=== PATIENT | female | born 1960 | race Caucasian/White ===

== ENCOUNTER → 2016-07-10 | Outpatient (CLI) | payer MEDICARE, OTHER | END | disposition home or self-care (01) | LOC: PCVCCLINIC 15:38 | PROVIDERS: ATTEND Internal Medicine Cardiovascular Disease | DX: I10 Essential (primary) hypertension (principal); I27.82 Chronic pulmonary embolism; R00.0 Tachycardia, unspecified; K21.9 Gastro-esophageal reflux disease without esophagitis; I45.10 Unspecified right bundle-branch block; Z79.899 Other long term (current) drug therapy; Z79.01 Long term (current) use of anticoagulants; E78.5 Hyperlipidemia, unspecified | CPT/HCPCS: 80061; 93005; G0463 ==

== ENCOUNTER → 2016-08-21 | Outpatient (CLI) | payer MEDICARE, OTHER | END | disposition home or self-care (01) | LOC: PCVCCLINIC 15:27 | PROVIDERS: ATTEND Internal Medicine Cardiovascular Disease | DX: I10 Essential (primary) hypertension (principal); I26.99 Other pulmonary embolism without acute cor pulmonale; I27.2 Other secondary pulmonary hypertension; K21.9 Gastro-esophageal reflux disease without esophagitis; M19.90 Unspecified osteoarthritis, unspecified site; F41.9 Anxiety disorder, unspecified; R00.1 Bradycardia, unspecified; F32.9 Major depressive disorder, single episode, unspecified; Z95.828 Presence of other vascular implants and grafts; Z79.01 Long term (current) use of anticoagulants; Z79.899 Other long term (current) drug therapy | CPT/HCPCS: G0463 ==

== ENCOUNTER → 2017-10-06 | Outpatient (CLI) | payer MEDICARE, OTHER ==
--- NOTE | 2017-10-06 17:16 | PCVCIMAG ---
APPROVED REPORT Study performed: 10/06/2017 13:52:32 EXAM: Comprehensive 2D, Doppler, and color-flow Echocardiogram Patient Location: Echo lab Status: routine BSA: 2.02 HR: 64 bpmBP: 110/80 mmHg Rhythm: NSR Other Information Study Quality: Good Indications Pulmonary hypertension. Asthma. MANE, Pulmonary Emboli. Pre op clearance for surgery. 2D Dimensions LVEF(%): 58.40 (>50%) IVSd: 8.88 (7-11mm)LVOT Diam: 20.59 (18-24mm) LVDd: 48.42 mm LVPWs: 19.37 mm PWd: 7.45 (7-11mm)Ascending Ao: 35.06 (22-36mm) LVDs: 33.46 (25-40mm) Left Atrium: 39.55 (27-40mm) Aortic Root: 30.27 mm LV Single Plane 4CH: 67.71 % LV Single Plane 2CH: 69.53 %Yu's LVEF: 68.62 % Biplane EF: 68.6 % Volumes Left Atrial Volume (Systole) Single Plane 4CH: 50.67 mLSingle Plane 2CH: 52.89 mL LA ESV Index: 26.00 mL/m2 Aortic Valve AoV Peak Willy.: 1.71 m/s AO Peak Gr.: 11.73 mmHgLVOT Max P.91 mmHg LVOT Max V: 1.31 m/s JOHN Vmax: 2.55 cm2 Mitral Valve E/A Ratio: 1.4 MV Decel. Time: 208.38 ms MV E Max Willy.: 1.00 m/s MV A Willy.: 0.73 m/s TDI E/Lateral E': 6.67E/Medial E': 7.69 Medial E' Willy.: 0.13 m/s Lateral E' Willy.: 0.15 m/s Pulmonary Valve PV Peak Gr.: 3.50 mmHg Pulmonary Vein P Vein S: 0.77 m/sP Vein A: 0.28 m/s P Vein D: 0.47 m/sP Vein A Dur.: 103.8 msec P Vein S/D Ratio: 1.64 Tricuspid Valve TR Peak Willy.: 3.22 m/s TR Peak Gr.: 41.42 mmHg Left Ventricle The left ventricle is normal size. There is normal LV segmental wall motion. There is normal left ventricular wall thickness. Left ventricular systolic function is normal. The left ventricular ejection fraction is within the normal range. LVEF is 60-65%. The left ventricular diastolic function is normal. Right Ventricle The right ventricle is normal size. The right ventricular systolic function is normal. Atria The left atrium size is normal. The right atrium size is normal. Aortic Valve The aortic valve is normal in structure. No aortic regurgitation is present. There is no aortic valvular stenosis. Mitral Valve The mitral valve is normal in structure. Mild mitral regurgitation. No evidence of mitral valve stenosis. Tricuspid Valve The tricuspid valve is normal in structure. Mild tricuspid regurgitation. Pulmonary artery pressure is 52mmhg. Pulmonic Valve The pulmonary valve is normal in structure. There is no pulmonic valvular regurgitation. Great Vessels The aortic root is normal in size. IVC is normal in size and collapses with >50% inspiration Pericardium There is no pericardial effusion. <Conclusion> The left ventricle is normal size. LVEF is 60-65%. The left ventricular diastolic function is normal. The right ventricle is normal size. The left atrium size is normal. The aortic valve is normal in structure. Mild mitral regurgitation. Mild tricuspid regurgitation. Pulmonary artery pressure is 52mmhg. There is no pulmonic valvular regurgitation. The aortic root is normal in size. There is no pericardial effusion.
== END | disposition home or self-care (01) ==
LOC: PCVCIMAG 13:47
PROVIDERS: ATTEND Internal Medicine Cardiovascular Disease
DX: Z01.818 Encounter for other preprocedural examination (principal); I27.20 Pulmonary hypertension, unspecified; J45.909 Unspecified asthma, uncomplicated; G47.33 Obstructive sleep apnea (adult) (pediatric); I26.99 Other pulmonary embolism without acute cor pulmonale; I08.1 Rheumatic disorders of both mitral and tricuspid valves
CPT/HCPCS: 85610; 93306

== ENCOUNTER → 2017-10-28 | Outpatient (CLI) | payer MEDICARE, OTHER | END | disposition home or self-care (01) | LOC: PCVCCLINIC 15:18 | PROVIDERS: ATTEND Internal Medicine Cardiovascular Disease | DX: I27.20 Pulmonary hypertension, unspecified (principal); R06.02 Shortness of breath; I26.99 Other pulmonary embolism without acute cor pulmonale; I10 Essential (primary) hypertension; J45.909 Unspecified asthma, uncomplicated; Z79.01 Long term (current) use of anticoagulants | CPT/HCPCS: 80061; 93005; G0463 ==

== ENCOUNTER → 2018-04-21 | Outpatient (CLI) | payer MEDICARE, OTHER ==
--- NOTE | 2018-04-21 17:26 | PCVCIMAG ---
APPROVED REPORT Study performed: 04/21/2018 16:44:56 EXAM: Comprehensive 2D, Doppler, and color-flow Echocardiogram Patient Location: Echo lab Room #: 2Status: routine BSA: 2.01 HR: 107 bpm Rhythm: Atrial Fibrillation Other Information Study Quality: Good Indications Atrial Fibrillation Dyspnea Palpitations Tachycardia Hx multiple pulmonary emboli with an IVC filter 2D Dimensions IVSd: 8.34 (7-11mm)LVOT Diam: 18.51 (18-24mm) LVDd: 47.56 mm PWd: 8.76 (7-11mm)Ascending Ao: 35.58 (22-36mm) LVDs: 31.65 (25-40mm) Left Atrium: 40.83 (27-40mm) Aortic Root: 26.31 mm LV Single Plane 4CH: 54.77 % LV Single Plane 2CH: 50.56 % Biplane EF: 52.3 % Volumes Left Atrial Volume (Systole) Single Plane 4CH: 71.42 mLSingle Plane 2CH: 51.82 mL Tricuspid Valve TR Peak Willy.: 3.07 m/s TR Peak Gr.: 37.70 mmHg TV Vmax: 1.00 m/sPA Pressure: 45.00 mmHg Left Ventricle The left ventricle is normal size. There is normal LV segmental wall motion. There is normal left ventricular wall thickness. Left ventricular systolic function is normal. The left ventricular ejection fraction is within the normal range. LVEF is 50-55%. This study is not technically sufficient to allow evaluation of the LV diastolic function due to atrial fibrillation. Right Ventricle The right ventricle is normal size. The right ventricular systolic function is normal. Atria Left atrium is mildly dilated. Right atrium is mildly dilated. Aortic Valve The aortic valve is normal in structure. No aortic regurgitation is present. There is no aortic valvular stenosis. Mitral Valve The mitral valve is normal in structure. There is no mitral valve regurgitation noted. No evidence of mitral valve stenosis. Tricuspid Valve The tricuspid valve is normal in structure. Moderate tricuspid regurgitation with a PA pressure of 45 mmHg. Moderate pulmonary hypertension. Pulmonic Valve The pulmonary valve is normal in structure. There is no pulmonic valvular regurgitation. Great Vessels The aortic root is normal in size. IVC is normal in size and collapses >50% with inspiration. Pericardium There is no pericardial effusion. There is no pleural effusion. <Conclusion> The left ventricle is normal size. LVEF is 50-55%. This study is not technically sufficient to allow evaluation of the LV diastolic function due to atrial fibrillation. The right ventricle is normal size. Left atrium is mildly dilated. Right atrium is mildly dilated. The aortic valve is normal in structure. There is no mitral valve regurgitation noted. Moderate tricuspid regurgitation with a PA pressure of 45 mmHg. Moderate pulmonary hypertension. The aortic root is normal in size. There is no pericardial effusion.
== END | disposition home or self-care (01) ==
LOC: PCVCIMAG 16:29
PROVIDERS: ATTEND Internal Medicine Cardiovascular Disease
DX: I07.1 Rheumatic tricuspid insufficiency (principal); I48.91 Unspecified atrial fibrillation; R06.09 Other forms of dyspnea; R00.2 Palpitations; R00.0 Tachycardia, unspecified; R06.02 Shortness of breath; I27.20 Pulmonary hypertension, unspecified; I26.99 Other pulmonary embolism without acute cor pulmonale; I10 Essential (primary) hypertension; K21.9 Gastro-esophageal reflux disease without esophagitis; G47.33 Obstructive sleep apnea (adult) (pediatric); M19.90 Unspecified osteoarthritis, unspecified site; Z79.01 Long term (current) use of anticoagulants; Z79.899 Other long term (current) drug therapy
CPT/HCPCS: 93005; 93308; G0463

== ENCOUNTER → 2018-04-22 | Outpatient (CLI) | payer MEDICARE, OTHER | END | disposition home or self-care (01) | LOC: PCVCCLINIC 13:00 | PROVIDERS: ATTEND Internal Medicine Cardiovascular Disease | DX: I48.1 Persistent atrial fibrillation (principal); I26.99 Other pulmonary embolism without acute cor pulmonale; I27.20 Pulmonary hypertension, unspecified; K21.9 Gastro-esophageal reflux disease without esophagitis; I10 Essential (primary) hypertension; M19.90 Unspecified osteoarthritis, unspecified site; Z79.01 Long term (current) use of anticoagulants | CPT/HCPCS: 93005; G0463 ==

== ENCOUNTER → 2018-10-27 | Outpatient (CLI) | payer MEDICARE, OTHER ==
--- NOTE | 2018-10-27 14:49 | PCVCIMAG ---
APPROVED REPORT Study performed: 10/27/2018 13:06:52 EXAM: Comprehensive 2D, Doppler, and color-flow Echocardiogram Patient Location: Echo lab Room #: 2Status: routine BSA: 1.91 HR: 75 bpmBP: 126/78 mmHg Rhythm: NSR Other Information Study Quality: Adequate Risk Factors: Cardiac Risk Factors: HTN Indications Pulmonary Hypertension Atrial Fibrillation Hypertension/HDD OCA, Hx Pulmonary emboli 2D Dimensions IVSd: 5.98 (7-11mm)LVOT Diam: 21.82 (18-24mm) LVDd: 44.36 mm PWd: 9.26 (7-11mm)Ascending Ao: 32.08 (22-36mm) LVDs: 31.07 (25-40mm) Left Atrium: 31.58 (27-40mm) Aortic Root: 33.28 mm LV Single Plane 4CH: 69.71 % LV Single Plane 2CH: 65.28 % Biplane EF: 68.2 % Volumes Left Atrial Volume (Systole) Single Plane 4CH: 68.17 mLSingle Plane 2CH: 89.25 mL Biplane LA Volume: 78.00 mLLA ESV Index: 41.00 mL/m2 Aortic Valve AoV Peak Willy.: 2.07 m/s AO Peak Gr.: 17.12 mmHgLVOT Max P.97 mmHg AO Mean Gr.: 7.12 mmHgLVOT Mean P.59 mmHg AO V2 Mean: 1.23 m/sLVOT Max V: 1.43 m/s AO V2 VTI: 36.62 cmLVOT Mean V: 1.00 m/s JOHN (VTI): 2.90 [id number] V1 VTI: 28.39 cm JOHN Vmax: 2.59 cm2 SV (LVOT): 106.13 mL Mitral Valve E/A Ratio: 1.3 MV Decel. Time: 125.12 ms MV E Max Willy.: 1.02 m/s MV A Willy.: 0.80 m/s IVRT: 62.28 ms TDI E/Lateral E': 7.85E/Medial E': 9.27 Medial E' Willy.: 0.11 m/s Lateral E' Willy.: 0.13 m/s Pulmonary Valve PV Peak Willy.: 1.24 m/sPV Peak Gr.: 6.16 mmHg Pulmonary Vein P Vein S: 0.65 m/sP Vein A: 0.32 m/s P Vein D: 0.52 m/sP Vein A Dur.: 107.3 msec P Vein S/D Ratio: 1.25 Tricuspid Valve TR Peak Willy.: 3.49 m/s TR Peak Gr.: 48.65 mmHg TV Vmax: 1.04 m/sPA Pressure: 56.00 mmHg Left Ventricle The left ventricle is normal size. There is normal LV segmental wall motion. There is normal left ventricular wall thickness. Left ventricular systolic function is normal. The left ventricular ejection fraction is within the normal range. 60% Right Ventricle The right ventricle is normal size. The right ventricular systolic function is normal. Atria Left atrium is mildly dilated. The right atrium size is normal. Aortic Valve The aortic valve is not well visualized. Aortic valve is grossly normal in structure. Mild aortic valve sclerosis. No aortic regurgitation is present. There is no aortic valvular stenosis. Mitral Valve The mitral valve is normal in structure. There is no mitral valve regurgitation noted. No evidence of mitral valve stenosis. Tricuspid Valve The tricuspid valve is normal in structure. Moderate tricuspid regurgitation with a PA pressure of 56 mmHg. Moderate pulmonary hypertension. Pulmonic Valve The pulmonary valve is normal in structure. There is no pulmonic valvular regurgitation. Great Vessels The aortic root is normal in size. The ascending aorta is normal in size. Aortic arch is normal in caliber. IVC is normal in size and collapses >50% with inspiration. Pericardium There is no pericardial effusion. There is no pleural effusion. <Conclusion> The left ventricle is normal size. 60% The right ventricle is normal size. Left atrium is mildly dilated. The aortic valve is not well visualized. Aortic valve is grossly normal in structure. Mild aortic valve sclerosis. Moderate tricuspid regurgitation with a PA pressure of 56 mmHg. Moderate pulmonary hypertension. The aortic root is normal in size. There is no pericardial effusion.
== END | disposition home or self-care (01) ==
LOC: PCVCIMAG 12:59
PROVIDERS: ATTEND Internal Medicine Cardiovascular Disease
DX: I08.2 Rheumatic disorders of both aortic and tricuspid valves (principal); I27.20 Pulmonary hypertension, unspecified; I48.0 Paroxysmal atrial fibrillation; I10 Essential (primary) hypertension
CPT/HCPCS: 36415; 80061; 93005; 93306; G0463